=== PATIENT | female | born 1995 | race Caucasian/White ===

== ENCOUNTER 2023-05-26 13:49 | Outpatient (CLI) | payer OTHER, SELFPAY ==
--- NOTE | 2023-05-26 14:00 | CRLHL7_ITS ---
For Patients: As a result of the Century Cures Act, medical imaging exams and procedure reports are released immediately into your electronic medical record. You may view this report before your referring provider. If you have questions, please contact your health care provider. INDICATION: First trimester scan, establish dates. COMPARISON: None. TECHNIQUE: Real-time patel-scale imaging of the pelvis was performed. FINDINGS: Sonographic imaging demonstrates a single living intrauterine gestation. The embryo demonstrates a regular cardiac rate measuring 173 beats per minute. The embryo`s crown-rump length measurement of 2.2 cm corresponds to a gestational age of 8 weeks 6 days with a sonographic due date of 12/30/2023. There is a normal-appearing yolk sac. There are no gross abnormalities noted within the embryo at this early state of development. The gestational sac has a normal appearance. There is no evidence of a perigestational hemorrhage. The amount of fluid within the sac appears appropriate for gestational age. The cervix is closed. The myometrium appears normal. The ovaries are of normal size. Corpus luteal cyst right ovary. There are no suspicious fluid collections noted in the cul-de-sac. IMPRESSION: Single living intrauterine with sonographic gestational age is 8 weeks 6 days and sonographic due date 12/30/2023. Dictated by Ricardo Chinchilla MD @ 05/27/2023 10:41:07 AM (Electronically Signed)
== END 2023-05-26 13:50 | disposition home or self-care (01) ==
PROVIDERS: Visit Provider Advanced Practice Midwife
DX: Z34.91 Encounter for supervision of normal pregnancy, unspecified, first trimester (principal); Z3A.08 8 weeks gestation of pregnancy
CPT/HCPCS: 76817; 86703; 86706; 86803; 86850; 86900; 86901; 87086; 87340

== ENCOUNTER 2023-05-26 15:58 | Outpatient (CLI) | payer OTHER, SELFPAY | END 2023-05-26 15:59 | disposition home or self-care (01) | LOC: NFLDREF 05-27 05:57 | PROVIDERS: Visit Provider Advanced Practice Midwife | DX: Z34.91 Encounter for supervision of normal pregnancy, unspecified, first trimester (principal) | CPT/HCPCS: 86592; 86703; 86704; 86706; 86762; 86787; 86803; 86850; 86900; 86901; 87086; 87340 ==

== ENCOUNTER 2023-10-03 15:03 | Outpatient (CLI) | payer OTHER, SELFPAY | END 2023-10-03 15:04 | disposition home or self-care (01) | LOC: NFLDREF 10-06 13:13 | PROVIDERS: PCP Advanced Practice Midwife; Visit Provider Advanced Practice Midwife | DX: Z34.03 Encounter for supervision of normal first pregnancy, third trimester (principal) | CPT/HCPCS: 86592 ==

== ENCOUNTER 2023-11-11 07:56 | Outpatient (CLI) | payer OTHER, SELFPAY ==
--- NOTE | 2023-11-11 08:15 | CRLHL7_ITS ---
For Patients: As a result of the Century Cures Act, medical imaging exams and procedure reports are released immediately into your electronic medical record. You may view this report before your referring provider. If you have questions, please contact your health care provider. INDICATION: GROWTH CHECK FOR COVID IN AND CHECK CHOROID PLEXUS CYSTS TECHNIQUE: Ultrasound OB pelvis transabdominal. Real-time patel-scale imaging of the fetus was performed without stress testing. Umbilical artery spectral Doppler was performed. COMPARISON: None available FINDINGS: Sonographic imaging demonstrates a single living intrauterine gestation. Fetus demonstrates a regular cardiac rate of 152 beats per minute. Fetus has a cephalic orientation. Placenta position is anterior. No definite choroid plexus cysts are identified in the submitted images noting the exam is not a detailed anatomic survey. Biometric measurements: Biparietal diameter: 8.3 cm (gestational age 33 weeks 2 days, 48th percentile). Head circumference: 29.9 cm (gestational age 33 weeks 1 day, 14th percentile). Abdominal circumference: 27.3 cm (gestational age 31 weeks 3 days, 9th percentile). Femur length: 6.3 cm (gestational age 32 weeks 5 days, 29th percentile). Estimated weight: 1910 grams, 16th percentile. Estimated ultrasound age by today`s measurements is 32 weeks 5 days with an estimated due date of 01/01/2024. Amniotic fluid volume appears normal with single deepest vertical pocket measuring 3.9 cm. breathing movements, motion, and tone were all observed. Biophysical profile score of 8/8 Umbilical artery Doppler demonstrates peak systolic velocity of 30.2 cm/s, end-diastolic velocity of 13.6 cm/s and umbilical artery S/D ratio of 2.2. IMPRESSION: Single viable intrauterine with a biophysical profile score of 8/8. biometric parameters as described. Estimated weight on today`s scan is 1910 grams, which is the 16th percentile. Dictated by Candy Singletary MD @ 11/11/2023 8:41:01 AM (Electronically Signed)
== END 2023-11-11 07:57 | disposition home or self-care (01) ==
PROVIDERS: Visit Provider Advanced Practice Midwife
DX: O35.03X0 Maternal care for (suspected) central nervous system malformation or damage in fetus, choroid plexus cysts, not applicable or unspecified (principal); O98.512 Other viral diseases complicating pregnancy, second trimester; U07.1 COVID-19
CPT/HCPCS: 76816; 76819; 76820

== ENCOUNTER 2023-11-18 10:44 | Outpatient (CLI) | payer OTHER, SELFPAY ==
--- NOTE | 2023-11-18 11:00 | CRLHL7_ITS ---
For Patients: As a result of the Century Cures Act, medical imaging exams and procedure reports are released immediately into your electronic medical record. You may view this report before your referring provider. If you have questions, please contact your health care provider. INDICATION: IUGR COMPARISON: 11/11/2023 TECHNIQUE: Real time patel scale imaging of the fetus was performed as well as color Doppler and spectral Doppler analysis of the umbilical artery. Without non-stress testing. FINDINGS: Sonographic imaging demonstrates a single living intrauterine gestation. Fetus demonstrates a regular cardiac rate of 152 beats per minute. Fetus has a vertex position. The umbilical artery demonstrates adequate diastolic blood flow. The S/D ratio measures 2.3. The amniotic fluid volume appears normal and there is a single deepest pocket measurement of 3.8 cm. The fetus was active and demonstrated normal breathing movements. There was normal flexion and extension of the trunk and extremities. IMPRESSION: Normal biophysical profile score of 8 out of 8. Dictated by Ricardo Chinchlila MD @ 11/18/2023 11:49:42 AM (Electronically Signed)
== END 2023-11-18 10:45 | disposition home or self-care (01) ==
LOC: US 10:46
PROVIDERS: Visit Provider Advanced Practice Midwife
DX: O36.5990 Maternal care for other known or suspected poor fetal growth, unspecified trimester, not applicable or unspecified (principal)
CPT/HCPCS: 76819; 76820

== ENCOUNTER 2023-11-29 10:44 | Outpatient (CLI) | payer OTHER, SELFPAY ==
--- NOTE | 2023-11-29 11:00 | CRLHL7_ITS ---
For Patients: As a result of the Century Cures Act, medical imaging exams and procedure reports are released immediately into your electronic medical record. You may view this report before your referring provider. If you have questions, please contact your health care provider. INDICATION: IUGR. COMPARISON: OB ultrasound 11/18/2023. TECHNIQUE: Ultrasound OB pelvis biophysical profile. Real time patel scale imaging of the fetus was performed without non-stress testing. FINDINGS: Sonographic imaging demonstrates a single living intrauterine gestation. The fetus demonstrates a regular cardiac rate of 150 beats per minute. The fetus has a cephalic orientation. The placenta lies anteriorly. Umbilical artery S/D ratio measures 2.1. Single deepest pocket measures 3.5 cm (2/2). The fetus was active (2/2). There was normal flexion and extension of the trunk and extremities (2/2). The fetus demonstrated normal breathing movements (2/2). IMPRESSION: Normal biophysical profile score 8 out of 8. Dictated by Jessi Ku MD @ 11/30/2023 2:47:15 AM (Electronically Signed)
== END 2023-11-29 10:45 | disposition home or self-care (01) ==
LOC: US 10:44
PROVIDERS: Visit Provider Advanced Practice Midwife
DX: O36.5990 Maternal care for other known or suspected poor fetal growth, unspecified trimester, not applicable or unspecified (principal)
CPT/HCPCS: 76819; 76820; 87081; 87653

== ENCOUNTER 2023-12-06 07:12 | Outpatient (CLI) | payer OTHER, SELFPAY ==
--- NOTE | 2023-12-06 07:15 | CRLHL7_ITS ---
For Patients: As a result of the Cures Act, medical imaging exams and procedure reports are released immediately into your electronic medical record. You may view this report before your referring provider. If you have questions, please contact your health care provider. INDICATION: IUGR TECHNIQUE: Real time patel scale imaging of the fetus was performed as well as color Doppler and spectral Doppler analysis of the umbilical artery. COMPARISON: 11/29/2023 FINDINGS: Sonographic imaging demonstrates a single living intrauterine gestation. Fetus demonstrates a regular cardiac rate of 134 beats per minute. Fetus has a vertex position. The placenta lies anteriorly. Amniotic fluid volume appears normal and there is a single deepest pocket of 3.8 cm. The estimated weight is 2667gm which lies at the 21st %. On the prior OB ultrasound dated 08/10/2023 the estimated weight was at the 28th percentile. There is adequate diastolic blood flow within the umbilical artery. The S/D ratio measures 2.0. BPD 29th percentile. HC 13th percentile. AC is 27th percentile. FL 10th percentile. The fetus was active and demonstrated normal breathing movements. There was normal flexion and extension of the trunk and extremities. IMPRESSION: Normal biophysical profile score 8/8. Sonographic gestational age 35 weeks 4 days and a sonographic due date 01/06/2024. Sonographic age 8 days behind the clinical age. Estimated weight is 21st percentile. Abdominal circumference 27th percentile. Dictated by Ricardo Chinchilla MD @ 12/07/2023 7:15:16 AM (Electronically Signed)
== END 2023-12-06 07:13 | disposition home or self-care (01) ==
LOC: US 07:13
PROVIDERS: Visit Provider Advanced Practice Midwife
DX: O36.5930 Maternal care for other known or suspected poor fetal growth, third trimester, not applicable or unspecified (principal); Z3A.35 35 weeks gestation of pregnancy
CPT/HCPCS: 76816; 76819; 76820

== ENCOUNTER 2023-12-14 20:03 | Inpatient (IN) | payer OTHER, SELFPAY ==
[2023-12-14 20:09] VITALS: BP 137/89; PULSE 85
[2023-12-14 20:10] VITALS: TEMP 36.9
[2023-12-14 20:15] VITALS: BMI 30.4
--- NOTE | 2023-12-14 20:51 | P.LDBA_ITS ---
Subjective History of Present Illness Time Seen by Provider: 20:45 Date Seen: 12/14/23 Narrative: Patient is being admitted to Labor and Delivery for IOL for IUGR per [employer] [facility] recommendations. She is a 28 year old at weeks gestation. Her full history and physical was dictated by Mireya Elizondo CNM on 12/06/2023. Please see this for details. Specific Issues/Plans RN at [facility] done 12/06/23 by Edwige Elizondo. heart and lungs done 12/14/23 # IUGR dx at 33wks. EFW 16%, AC 9% MFM referral: EFW 9% Recommended Weekly BPP with dopplers, return to them for growth at 37 weeks and delivery at 38-39 weeks if EFW remains <10% but at 3% or greater ( delivery at 37 wks if EFW <3% or abnormal doppler flow.) Weekly BPP with dopplers: testing worksheet completed Growth US Q4wks: with M- 12/13 EFW 5%. AC 2% they recommend IOL at 38 weeks. # Hx asthma, exercise induced last inhaler use was in 8th grade # Covid in , discussed these recommendations have been removed as of July 2023 Level 2 US- [place]: 08/09: anatomy unremarkable with exception of bilateral choroid plexus cysts. EFW 35%. Anterior placenta. MVP 4.6. Genetic screening: offered and declined Baby ASA recommended Growth US at 32 weeks: would like to do for follow-up on Choroid plexus cyst and hx of COVID in as this was initially offered. # Choroid plexus cyst, per [employer] no follow-up needed Covid vaccination: yes in past, no recent booster, declines Flu vaccination: not recent and declines 32wk Mental Health 11/11/2023 PHQ-9: 1 ELI-7: 0 OB - Problem Based A/P Additional Plan (1) affected by growth restriction: Status: Acute (2) : Status: Acute Plan ASSESSMENT:?? 28 at 37w6d weeks gestation?? complicated by:??IUGR Labor type: Induced labor?? Category 1 FHR pattern.??? Labor complicated by: IUGR, Induction?? GBS negative? PLAN:?? 1. Routine intrapartum cares as ordered. Continue with expectant management?? 2. Monitoring per policy, continuous ? 3. Planning unmedicated . Candidate for analgesia of choice if she changes her mind.??? 4. Patient encouraged to reposition and ambulate to promote physiologic labor and .?? 5. Initial contractions spontaneously starting so we decided on cervidil for ripening so we can pull it if uterus becomes overstimulated. Can consider mechanical dilation after some cervical thinning. 6. Anticipate ? Delivery/Labor/Induction Plan Plan: induction Induction method: Cervidil OB Result Labs Blood Type: A (+) positive Rubella: immune RPR/VDLR: nonreactive GBS Status: negative HBsAG: negative OB Exam Physical Exam Vital signs: Temp Pulse BP 98.4 F 85 137/89 12/14/23 20:10 12/14/23 20:09 12/14/23 20:09 Narrative: Vitals Reviewed Constitutional:? Alert and oriented x3 HEENT:? Normocephalic, atraumatic Neck:? Supple Lungs:? Clear to auscultation bilaterally Heart:? Regular rate and rhythm, no murmur, rub or gallop Abdomen:? Soft, nontender, and gravid. Vertex by Antonio's, confirmed with cervical exam. Extremities:? No edema or erythema Cervix: 1 cm/20%/-2 station/vertex NST: 130 bpm/moderate variability/+accelerations/no decelerations/q3-4 min contractions with soft palpation in between >60 sec
[2023-12-14] MEDS: DINOPROSTONE 10 MG VAGINAL INSERT VAGINAL (21:13)
[2023-12-14 21:33] LABS: Basophils Percent Auto 0.2 % (0.0-3.0); Eosinophils Percent Auto 0.6 % (0.0-7.0); Hematocrit 38.8 % (33.0-51.0); Hemoglobin* 13.2 gm/dL (12.0-16.0); Immature Granulocytes Pct Auto 0.2 %; Lymphocytes Percent Auto 27.2 % (20-44); Mean Corpuscular HGB Conc 34 gm/dL (32-36); Mean Corpuscular Hemoglobin 30 pg (26-34); Mean Corpuscular Volume 88 fL (80-100); Monocytes Percent Auto 6.5 % (0.0-11.0); Neutrophils Percent Auto 65.3 % (42.0-72.0); Platelet Count* 249 K/uL (140-440); RDW Coefficient of Variation % 12.6 % (11.5-15.5); Red Blood Count 4.41 m/uL (4.00-5.20); White Blood Count* 11.89 K/uL (4.50-11.00)
[2023-12-14 21:37] LABS: Slide Review Reflex No
[2023-12-14 23:23] VITALS: BP 135/80; PULSE 84; PULSE 93; TEMP 36.9; O2SAT 98
[2023-12-15] VITALS (21 sets, daily range): BP systolic 118–156; BP diastolic 70–89; PULSE 68–96; RESP 16; TEMP 36.5–37.1; O2SAT 88–99
[2023-12-15] MEDS: LACTATED RINGERS 1000 ML 1,000 ML 950 ML IV (08:05)
--- NOTE | 2023-12-15 09:07 | P.OBPN_ITS ---
Subjective Date Seen: 12/15/23 Narrative: Consuelo is sitting on the birthing ball and supported by her in the room. She has been having contractions overnight. She now describes feeling them in her back and hips. She is able to talk through them and feels they are mild but did wake her a few times overnight. She is wei frequently and states that she feels most of them the same way. She has been ambulating and sitting on the birthing ball this morning as she feels more comfortable in upright pos itions vs laying down. The Cervidil was removed intact and without difficulty. Her cervix was checked at that same time and was found to be 1cm/50%/-2. Baby was low and well applied to the cervix. We discussed options for continuing with induction including AROM, Pitocin titration, and Cook catheter. Risks and benefits of each were reviewed and questions answered. She would like to proceed with Pitocin titration. Will monitor contraction pattern and tolerance to the contractions closely with her existing contractions pattern. FHR tracing has looks reactive and reassuring throughout the night. However when she w flat on her back prior to a SVE this morning baby did have a decrease in FHR to the 90's which recovered quickly when she was tilted onto her left side. We did discuss positioning and encouraged her to avoid supine positioning without a tilt. Encouraged positions changed to promote good position and physiologic labor and . 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 has not repeated. ) Plan Plan: ASSESSMENT:?? 28 year old at 38w0d weeks gestation?? complicated by:??IUGR Labor type: Induced labor? Labor complicated by: IUGR, Induction?? GBS negative? PLAN:?? 1. Routine intrapartum cares as ordered. Continue with expectant management?? 2. Monitoring per policy, continuous ? 3. Planning unmedicated . Candidate for analgesia of choice if she changes her mind.??? 4. Patient encouraged to reposition and ambulate to promote physiologic labor and .?? 5. Discussed options for continuing IOL. Decided on Pitocin titration. Will monitor tolerance closely due to existing contraction pattern. 6. Anticipate ?
[2023-12-15] MEDS: OXYTOCIN 30 unit/500 ML in NS 30 UNIT/500 ML BAG 300 UNIT IVPB (13:53)
--- NOTE | 2023-12-15 14:18 | W.PM.OBVAGDE ---
OB Procedure Vag Delivery Mother Details Mother Details: The patient is a 28 year-old, 1, Para 0, admitted on 12/14/23 at 38.0 Days gestation. : 1 Para: 1 Weeks Gestation: 38.0 Admission Date: 12/14/23 Additional Details Amniotic Membrane Status: SROM Amniotic Membrane Rupture Date: 12/15/23 Amniotic Membrane Rupture Time: 09:55 Amniotic Membrane Fluid Description: Clear Analgesia/Anesthesia Type: None Waterbirth: No Pitcoin: Yes ([facility] only) Intrapartal Events: Labor Induction, Distress and Precipitous Labor <3 Hrs Induction Method: Cervidil Labor Onset: 13:16 Complete: 13:31 Pushin:31 Heart: heart tones during second stage: before pushing the baseline was 120 with +accels and no decels. Shortly after pushing began there was a prolonged deceleration with pushing lasting about 15 minutes. Position was changed multiple times without resolution. The deceleration was 65-100. Pressure was applied outward on the sides of the head to attempt to relieve pressure without any change to FHR. Delivery Details Delivery Date: 12/15/23 Delivery Time: 13:52 Route of delivery: Gender: Male Viability: Alive; Heart Rate Present Position at Delivery: OA Delivery Details: Patient was admitted for IOL for IUGR. She was given Cervidil overnight. Plan was to start Pitocin titration but she had SROM before it was started and progressed on her own. SROM noted at 0955 with clear fluid. Patient was complete at 1331 and pushing at 1331. of a viable male at 1352 in hands and knees. Vertex delivered OA. No nuchal cord or shoulder. Body delivered easily and without incident. Infant did not cry and was very pale. Cord was immediately clamped and cut and baby was taken to the warmer. Was given PPV but quickly started crying. APGARS were 7 at one minute and 9 at five minutes respectively. Intact placenta with a 3 vessel cord delivered spontaneously at 1356. An accessory lobe that appeared to be complete. Placenta was sent o pathology for IUGR. Fundus firm. 1st identified and was hemostatic. After shared decision making it was decided not to repair. QBL 25 cc. Mother and baby stable; mother plans to breastfeed. weight pending.? 1 Minute Interval Total Score: 7 5 Minute Interval Total Score: 9 Additional Details Shoulder Dystocia: No Placenta Delivery Time: 13:56 Placental Delivery Description: Spontaneous Procedure Done: Global Blood Loss: 25 Laceration: Perineal - 1st Degree (hemostatic, not repaired ) Episiotomy Description: None Blood Loss Measurement Type: QBL Bakri Used: No Sponge/Need Count Correct: Yes Cord Vessel Description: 3 Vessels Event Summary Status: Mother and infant were stable after delivery. Disposition: floor
[2023-12-16 01:00] VITALS: BP 130/84; PULSE 77; RESP 16; TEMP 36.8
[2023-12-16 06:25] VITALS: BP 129/82; PULSE 78; RESP 16; TEMP 37
--- NOTE | 2023-12-16 08:14 | PM.OBPNVD1 ---
OB - PN:Subj Subjective Date Seen: 12/16/23 Patient comments OB post-: no complaints, pain well controlled, tolerating diet and flatus present Gillett status: Gillett feeding status: exclusively Narrative: Consuelo is a 28 y.o. who was admitted to L & D for induction of labor .? She had an uncomplicated NVD.? ?? The patient feels well.? The pain is well controlled with current medications.? She has no new complaints.? She is breast feeding and reports things are going well.? the patient has done well.? Vitals have been stable.? She has remained afebrile.? Has a good appetite, is tolerating a general diet.? She is voiding without difficulty.? She is passing gas and has had a bowel movement.? She is ambulating and denies any dizziness.? Has Small amount of rubra lochia.? OB - PN: Obj Exam Physical Exam: Vital signs: Temp Pulse Resp BP Pulse Ox 98.6 F 78 16 129/82 88 12/16/23 06:25 12/16/23 06:25 12/16/23 06:25 12/16/23 06:25 12/15/23 13:47 Narrative: GENERAL APPEARANCE:? normal affect, alert, no distress? MOOD:? appropriate? HEENT: normocephalic, neck supple, full ROM? CHEST:? Symmetrical chest wall movement.? Normal respiratory effort.? Clear to auscultation ? HEART:? regular rate and rhythm? ABDOMEN:? soft, non-tender. Uterine fundus is firm, at Umbilicus, Midline and is appropriate for the stage of recovery.? Bowel sounds present.? PERINEUM:? mild edema of the perineum, there is a 1st degree laceration that is healing well.? EXTREMITIES:? normal and no edema? OB - PN: A/P Delivery Assessment and Plan (1) affected by growth restriction: Status: Acute (2) care and examination immediately after delivery: Status: Acute (3) Lactating mother: Status: Acute Plan day: 1 Plan: routine care Comments: G 1 P 1 status post uncomplicated NVD??? 1.? Continue route PP cares? 2.? .? May see if desired? 3.? Anticipate discharge home tomorrow?
[2023-12-16 08:17] VITALS: BP 122/81; PULSE 101; RESP 16; O2SAT 88
[2023-12-16 14:35] VITALS: BP 118/83; PULSE 94; RESP 16; O2SAT 88
[2023-12-16 17:49] VITALS: BP 124/85; PULSE 103; RESP 16; O2SAT 88
[2023-12-16 20:02] VITALS: BP 134/84; PULSE 98; RESP 16; TEMP 36.6; O2SAT 99
[2023-12-17 05:30] VITALS: BP 120/78; PULSE 92; RESP 15; TEMP 36.7; O2SAT 98
[2023-12-17 08:15] VITALS: BP 130/80; PULSE 98; RESP 16; TEMP 36.5; O2SAT 99
--- NOTE | 2023-12-17 08:28 | PM.OBDSVD1 ---
DS: Providers Provider Date Seen: 12/17/23 Date of admission: 12/14/23 20:03 Primary care physician: Not a Local Provider Admitting Clinician: Destiny Steve CNM Attending Physician on discharge: Katheryn Rose CNM DS: Diagnosis Discharge Diagnosis (1) care and examination immediately after delivery: Status: Acute (2) Lactating mother: Status: Acute (3) Elevated blood pressure reading without diagnosis of hypertension: Status: Acute Exam Narrative: Exam Narrative: GENERAL APPEARANCE:? normal affect, alert, no distress MOOD:? appropriate CHEST:? clear to auscultation HEART:? regular rate and rhythm ABDOMEN:? soft, non-tender the uterine fundus is At Umbilicus, Midline and is appropriate for the stage of recovery. PERINEUM:? mild edema of the perineum, there is a Perineal Laceration,?1st degree, that is healing well. EXTREMITIES:? normal and no edema Const: Vital Signs, click to edit/add: Vital Signs - 24 hr 12/16/23 14:35 12/16/23 17:49 12/16/23 20:02 Temperature 98 F Pulse Rate [Blood Pressure Cuff] 94 103 H 98 Respiratory Rate 16 16 16 Blood Pressure [Le ft Arm] 118/83 124/85 134/84 Pulse Oximetry 88 88 99 Oxygen Delivery Me thod Room Air 12/17/23 05:30 Temperature 98.0 F Pulse Rate [Blood Pressure Cuff] 92 Respiratory Rate 15 Blood Pressure [Le ft Arm] 120/78 Pulse Oximetry 98 Oxygen Delivery Me thod Room Air Documenting provider has reviewed patient's vital signs: yes OB - DS: Summary Hospital Course Hospital Course: Consuelo is a 28 y.o. G 1 P 1 who was admitted to L & D for induction of labor for severe IUGR. ?She had a NVD that was uncomplicated. The patient feels well. ?The pain is well controlled with current medications. ?She has no new complaints. ?She is breast feeding and reports things are going well. the patient has done well.? Vitals have been stable.? She has remained afebrile.? Has a good appetite, is tolerating a general diet. ?She is voiding without difficulty.? She is passing gas and has had a bowel movement.? She is ambulating and denies any dizziness.? Has small amount of rubra lochia. She is planning Mirena IUD for prevention. Problems: none plan: Discharge home with baby. Follow up in 2 weeks and 6 weeks. , may see if needed Hgb 13.2. Elevated BP without diagnosis of HTN Peripartum Data delivery method: Vaginal Laceration description: Perineal - 1st Degree Gender: Male Status at Discharge Functional status at discharge: independent ambulation Overall status at discharge: patient is progressing back to baseline Time Spent with Patient Time attestation: Total time spent providing and/or coordinating discharge services: Discharge Plan Discharge Disposition: Home, Self-Care Date of Admission: 12/14/23 20:03 Attending Provider on Discharge: Katheryn Rose Primary Care Provider: Provider,Not a Local Condition: Stable Anticipated Discharge Date/Time: 12/17/23 12:00 Discharge Medications: New docusate sodium 100 mg Capsule 100 mg PO DAILY Qty: 0 0RF acetaminophen 500 mg Tablet 1,000 mg PO Q6H PRNQty: 0 0RF ibuprofen 600 mg Tablet 600 mg PO Q6H PRNQty: 0 0RF Continued PNV no.[id number] acid 28 mg iron- 800 mcg tablet 1 tab PO DAILY Discharge Orders: Discharge Order (Routine); Ordered 12/17/23 Ordered By: Katheryn Rose Patient Education: OB Vaginal/Breast Feeding, OB Over the Counter Medication Information Additional Instructions: Discharge instructions were reviewed with the patient including signs and symptoms of infection and home going medications Nothing vaginally for 6 weeks: no tampons or intercourse Off Work or School for 6 weeks 2-week visit: discuss feeding concerns, review control options and screen for anxiety/depression. 6-week visit for an annual exam. consultation services are available to all mothers and babies for the first year after delivery.? To make an appointment, please call [phone]. Activity Level: Activity as Tolerated Discharge Diet: Regular Follow Up Appointments: [facility] [Provider Group] Forms: [employer] Info Instructions
== END 2023-12-17 12:10 | disposition home or self-care (01) | DRG 807 ==
PROVIDERS: Admitting Provider Midwife; Visit Provider Midwife
DX: O36.5930 Maternal care for other known or suspected poor fetal growth, third trimester, not applicable or unspecified (principal); Z37.0 Single live birth; O76 Abnormality in fetal heart rate and rhythm complicating labor and delivery; O62.3 Precipitate labor; R03.0 Elevated blood-pressure reading, without diagnosis of hypertension; O70.0 First degree perineal laceration during delivery; Z3A.37 37 weeks gestation of pregnancy
CPT/HCPCS: 36415; 59200; 85025; 86592; 86850; 86900; 86901; 88307; A9270; J2371; J7120

== ENCOUNTER 2025-02-11 09:04 | Outpatient (CLI) | payer OTHER, SELFPAY ==
--- NOTE | 2025-02-11 09:15 | CRLHL7_ITS ---
For Patients: As a result of the Cures Act, medical imaging exams and procedure reports are released immediately into your electronic medical record. You may view this report before your referring provider. If you have questions, please contact your health care provider. OB ULTRASOUND LESS THAN 14 WEEKS, 02/11/2025 CLINICAL HISTORY: Dating and viability. COMPARISON: None. TECHNIQUE: Real time patel scale imaging of the fetus was performed. Transvaginal imaging performed. Transvaginal ultrasound of the pelvis was performed to better evaluate the genitourinary organs such as the ovaries and/or endometrium. FINDINGS: Surgery: None. Imaging: Transvaginal. LMP: 12/12/2024. ANDRES by LMP: 09/18/2025. GA: 8 weeks 5 days. CRL: 1.95 cm, 8 weeks 4 days. ANDRES 09/19/2025. FHR: 167 bpm. GEST SAC: 3.5 cm, appears WNL. YOLK SAC: 3.6 mm, appears WNL. RIGHT OV: 3.4 x 2.9 x 3.0 WNL. CL. LEFT OV: 3.0 x 1.8 x 2.5 cm. IMPRESSION: 1. Single living intrauterine measures 8 weeks 4 days and sonographic due date 09/19/2025. 2. Corpus luteal cyst right ovary. Ricardo Chinchilla M.D. Diagnostic Radiologist [email or web address] Transcribed: 1:57 pm DW/Dictated by: Ricardo Chinchilla MD @ 02/11/2025 12:49:00 PM (Electronically Signed)
== END 2025-02-11 09:05 | disposition home or self-care (01) ==
LOC: US 09:04
PROVIDERS: Visit Provider Advanced Practice Midwife
DX: O34.81 Maternal care for other abnormalities of pelvic organs, first trimester (principal); N83.11 Corpus luteum cyst of right ovary; Z3A.08 8 weeks gestation of pregnancy
CPT/HCPCS: 76817

== ENCOUNTER 2025-02-11 10:30 | Outpatient (CLI) | payer OTHER, SELFPAY ==
[2025-02-11 15:55] LABS: Chlamydia DNA Amplified* NOT DETECTED (No Detected); GC DNA Amplified* NOT DETECTED (No Detected)
== END 2025-02-11 10:31 | disposition home or self-care (01) ==
PROVIDERS: Visit Provider Advanced Practice Midwife
DX: Z34.91 Encounter for supervision of normal pregnancy, unspecified, first trimester (principal); Z3A.08 8 weeks gestation of pregnancy
CPT/HCPCS: 83020; 83021; 85660; 86592; 86703; 86704; 86706; 86762; 86787; 86803; 87086; 87340; 87491; 87591

== ENCOUNTER 2025-03-11 09:55 | Outpatient (CLI) | payer OTHER, SELFPAY | END 2025-03-11 09:56 | disposition home or self-care (01) | LOC: NFLDREF 03-24 12:17 | PROVIDERS: Visit Provider Advanced Practice Midwife | DX: Z34.91 Encounter for supervision of normal pregnancy, unspecified, first trimester (principal) | CPT/HCPCS: 86706; 87340 ==

== ENCOUNTER 2025-05-06 11:59 | Outpatient (CLI) | payer OTHER, SELFPAY ==
--- NOTE | 2025-05-06 12:15 | CRLHL7_ITS ---
For Patients: As a result of the Century Cures Act, medical imaging exams and procedure reports are released immediately into your electronic medical record. You may view this report before your referring provider. If you have questions, please contact your health care provider. OB ULTRASOUND SURVEY LMP: 12/12/2024. ANDRES by LMP: 09/18/2025. GA: 20 w, 5 d. INDICATION: anatomy. TECHNIQUE: Real time grayscale imaging of the fetus was performed. Evaluate anatomy. Transabdominal imaging performed. position: Multiple positions. Cervix: Visualized. Technique: Transabdominal. Length of closed cervix: 3.9 cm. Placenta/cord: Anterior. Technique: Transabdominal. Placenta tip to internal OS: 8.9 cm. Umbilical Cord: 3-vessel cord. Placenta insertion: Central. Amniotic Fluid: 5.1 cm SDP (greater than/equal to: 2- less than 8 cm). SURVEY: Observed Structures. Calvarium/Spine: Cerebellum: 2.1 cm, 21 w 1 d. Cisterna Magna: 4.5 mm. Nuchal Fold: 3.7 mm. Lateral Ventricle: 6.4 mm. CSP: Yes. Midline Falx: Yes. Choroid Plexus: Yes. Spine: Yes. Abdomen: Stomach: Yes. Abd Cord Insertion: Yes. Urinary Bladder: Yes. Kidneys: Yes. Diaphragm: Yes. Face: Nose/lips: Yes. Orbital view: Yes. Profile: Yes. Limbs: Upper Extremities: Yes. Lower Extremities: Yes. Hands: Yes. Feet: Yes. Vascular: 4-Chamber Heart: Yes. LVOT: Yes. RVOT: Yes. 3VV: Yes. 3VTV: Yes. BPD: 4.7 cm. 20 w, 2 d, 33.1%. HC: 17.7 cm. 20 w, 1 d, 17.9%. AC: 16.2 cm. 21 w, 2 d, 62.1%. FL: 3.3 cm. 20 w, 2 d, 26.7%. FL/AC ratio: 20.33%. HC/AC ratio: 1.09. heart rate: 150 bpm. age by this US: 20 w, 4 d. ANDRES by this US: 09/19/2025. EFW: 373.56g. Weight: 0 lbs., 13 oz. Percentile by ANDRES: 45.9%. IMPRESSION: 1. Concordance of clinical and sonographic dates. 2. Normal anatomic survey. Ricardo Chinchilla M.D. Diagnostic Radiologist [email or web address]/[email or web address] [email or web address]/Dictated by: Ricardo Chinchilla MD @ 05/06/2025 2:22:00 PM (Electronically Signed)
== END 2025-05-06 12:00 | disposition home or self-care (01) ==
LOC: US 12:00
PROVIDERS: Visit Provider Advanced Practice Midwife
DX: Z34.92 Encounter for supervision of normal pregnancy, unspecified, second trimester (principal); Z3A.20 20 weeks gestation of pregnancy
CPT/HCPCS: 76805